=== PATIENT | male | born 1990 | race Caucasian/White ===

== ENCOUNTER 2024-03-14 08:42 | Emergency (ER) | payer MEDICAID ==
[~2024-03-14] VITALS: Ht 170.2 cm; Wt 98.4 kg
[2024-03-14 08:47] VITALS: BP_SYST 158; PULSE 86; RESP 20; TEMP 98.3; O2SAT 98
[2024-03-14] MEDS ORDERED: AMOX-423 PO (09:51)
[2024-03-14] MEDS ORDERED: IBUP-1971 PO (09:52)
[2024-03-14 09:56] VITALS: BP_SYST 158; PULSE 86; RESP 20; TEMP 98.3; O2SAT 98
== END 2024-03-14 09:56 ==
LOC: SED 08:42
DX: K02.9 Dental caries, unspecified (principal); K08.89 Other specified disorders of teeth and supporting structures; F10.90 Alcohol use, unspecified, uncomplicated; Y90.9 Presence of alcohol in blood, level not specified
CPT/HCPCS: 99283